=== PATIENT | male | born 1955 | race Two or more races ===

== ENCOUNTER 2021-03-20 18:20 | Emergency (ER) | payer OTHER ==
[~2021-03-20] VITALS: Ht 177.8 cm; Wt 99.8 kg
[2021-03-20 18:20] VITALS: BP 160/100
[2021-03-20 19:33] LABS: Basophils # (auto) 0 10 ^3/uL (0-0.2); Basophils % (auto) 0.3 % (0.0-2.0); Eosinophils # (auto) 0.6 10 ^3/uL (0-0.8); Hematocrit 37.7 % (41.0-53.0); Hemoglobin 12.9 g/dL (13.5-17.5); Lymphocytes # (auto) 0.2 10 ^3/uL (0.4-5.4); Lymphocytes % (auto) 4.8 % (10.0-50.0); Mean Corpuscular Hemoglobin 33.8 pg (28.0-32.0); Mean Corpuscular Hgb Conc. 34.3 g/dL (32.0-36.0); Mean Corpuscular Volume 98.5 fL (80.0-100.0); Monocytes # (auto) 0.1 10 ^3/uL (0-1.3); Monocytes % (auto) 1.9 % (0.0-12.0); Nucleated Red Blood Cells % 0.3 %; Red Blood Cells 3.83 10^6/uL (4.5-5.90); White Blood Cell 4.9 10^3/uL (4.4-10.8)
[2021-03-20 19:34] LABS: Albumin 3.3 g/dL (3.4-5.0); Anion Gap 10 (5-15); Blood Urea Nitrogen 11 mg/dL (7-18); Calcium 9.4 mg/dL (8.5-10.1); Carbon Dioxide 25 mmol/L (21-32); Chloride 113 mmol/L (98-107); Glucose 129 mg/dL (74-106); Sodium 148 mmol/L (136-145)
[2021-03-20 19:38] LABS: Alanine Aminotransferase 21 U/L (16-61); Alkaline Phosphatase 67 U/L (45-117); Aspartate Aminotransferase 22 U/L (15-37); BUN/Creatinine Ratio 12.9; Bilirubin, Total 0.2 mg/dL (0.2-1.0); GFR African American 116 mL/min; GFR Non-African American 96 mL/min; Total Protein 6.8 g/dL (6.4-8.2)
[2021-03-20 19:40] LABS: INR 1.02 (0.9-1.15); Partial Thromboplastin Time 25.4 sec (23.6-33.0)
[2021-03-20 19:52] LABS: Potassium 2.9 mmol/L (3.5-5.1)
[2021-03-20] MEDS ORDERED: POTASSIUM CHL 20MEQ/100ML 100 ML IV SCH (21:00)
[2021-03-20] MEDS ORDERED: POTASSIUM EFFERVESENT TAB 25 MEQ PO ONE (21:00)
== END 2021-03-20 22:06 | disposition left against medical advice (07) ==
LOC: EDBD 18:20 → ER 18:24
DX: M25.552 Pain in left hip (principal); M54.5 Low back pain; F10.129 Alcohol abuse with intoxication, unspecified; I10 Essential (primary) hypertension; Y90.9 Presence of alcohol in blood, level not specified; Z86.73 Personal history of transient ischemic attack (TIA), and cerebral infarction without residual deficits; R51.9 Headache, unspecified
CPT/HCPCS: 36415; 70450; 71045; 72125; 72131; 72192; 73700; 80053; 84484; 85025; 85610; 85730; 93005

== ENCOUNTER 2021-04-02 22:50 | Emergency (ER) | payer OTHER ==
[~2021-04-02] VITALS: Ht 175.3 cm; Wt 2.5 kg
[2021-04-02 23:02] VITALS: BP 222/137
== END 2021-04-02 23:30 | disposition left against medical advice (07) ==
LOC: ER 22:50 → EDUNIT# 22:50 → EDBD 22:50 → ER 22:59
DX: I16.9 Hypertensive crisis, unspecified (principal); R51.9 Headache, unspecified; R42 Dizziness and giddiness; Z53.21 Procedure and treatment not carried out due to patient leaving prior to being seen by health care provider